=== PATIENT | female | born 1990 | race Caucasian/White ===

== ENCOUNTER → 2021-03-08 09:22 | Outpatient (BNVA) | payer OTHER, SELFPAY | PROVIDERS: PCP Family Medicine; Referring Provider Family Medicine; Visit Provider Nurse Practitioner | DX: K59.04 Chronic idiopathic constipation (principal); K21.9 Gastro-esophageal reflux disease without esophagitis; R63.4 Abnormal weight loss; R11.2 Nausea with vomiting, unspecified | CPT/HCPCS: 99202 ==

== ENCOUNTER 2021-03-08 10:55 | Outpatient (REF) | payer OTHER, SELFPAY ==
[2021-03-08 13:26] LABS: MANUAL DIFF FLAG NO
[2021-03-08 13:28] LABS: Basophils Percent Auto 0.3 % (0-2); Eosinophils Absolute Auto 0.1 X10*3/uL (0.0-0.4); Hematocrit 41.3 % (37.0-47.0); Hemoglobin 13.4 g/dl (12.0-16.0); Imm Gran Abs Auto 0.03 X10*3/uL (0.00-0.03); Imm Gran Pct Auto 0.3 % (0.0-0.4); Lymphocytes Absolute Auto 2.4 X10*3/uL (1.2-4.9); Lymphocytes Percent Auto 26.2 % (20-40); Mean Corpuscular HGB Conc 32.4 g/dl (31.0-35.0); Mean Corpuscular Hemoglobin 28.2 pg (27.0-33.0); Mean Corpuscular Volume 86.9 fL (80.0-98.0); Monocytes Absolute Auto 0.5 X10*3/uL (0.1-1.2); Neutrophils Absolute Auto 6.2 x10*3/uL (2.0-8.3); Neutrophils Percent Auto 67.2 % (45-73); Platelet Count 196 X10*3/uL (160-400); Red Blood Count 4.75 X10*6/uL (4.20-5.50); White Blood Count 9.2 X10*3/uL (4.8-10.8)
[2021-03-08 13:41] LABS: Alanine Aminotransferase 19 U/L (0-31); Albumin Level 4.4 g/dL (3.5-5.0); Alkaline Phosphatase 59 U/L (39-117); Anion Gap 13 (12-20); Aspartate Amino Transferase 19 U/L (5-31); Bilirubin Total 0.5 mg/dL (0.0-1.0); Blood Urea Nitrogen 13 mg/dL (9-16); Carbon Dioxide 23 mmol/L (22-29); Chloride 106 mmol/L (96-108); Cholesterol 166 mg/dL; Estimated Glomerular Filt Rate > 60; Glucose Fasting 94 mg/dL (60-99); HDL Cholesterol 50 mg/dL; LDL Cholesterol Calculated 105 mg/dl; Potassium 4.4 mmol/L (3.3-5.1); Sodium 138 mmol/L (135-145); Total Protein 7.4 g/dL (6.5-8.0); Triglycerides 57 mg/dL
[2021-03-08 13:50] LABS: Appearance Urine CLEAR; Color Urine YELLOW; Glucose Urine UA NEG (NEG); Leukocyte Esterase Urine 1+ (NEG); Nitrite Urine NEG (NEG); Urine Blood NEG (NEG); Urine Ketones NEG (NEG); Urine Protein NEG (NEG-TRACE)
[2021-03-08 14:03] LABS: TSH reflex Free T4 0.97 uIU/mL (0.32-4.0)
[2021-03-08 14:27] LABS: Bacteria Urine TRACE /LPF; RBC Urine 0-2 /HPF (0); Squamous Epithelial Cell Urine 2+ /LPF
[2021-03-12 10:52] LABS: Transglutaminase Ab IgG <1.0 U/mL; Transglutaminase IgA <1.0 U/mL
== END 2021-03-08 10:56 | disposition home or self-care (01) ==
LOC: HO.WFDLDS 10:55
PROVIDERS: Absent Provider Family Medicine; PCP Family Medicine; Visit Provider Nurse Practitioner
DX: Z00.00 Encounter for general adult medical examination without abnormal findings (principal); K59.04 Chronic idiopathic constipation; R63.4 Abnormal weight loss; K21.9 Gastro-esophageal reflux disease without esophagitis; R11.2 Nausea with vomiting, unspecified
CPT/HCPCS: 36415; 80053; 80061; 81001; 84443; 85025; 86364

== ENCOUNTER 2021-03-26 18:53 | Outpatient (REF) | payer OTHER, SELFPAY | END 2021-03-26 18:54 | disposition home or self-care (01) | LOC: HO.LNP 18:53 | PROVIDERS: Visit Provider Family Medicine | DX: Z20.822 Contact with and (suspected) exposure to COVID-19 (principal); J02.9 Acute pharyngitis, unspecified | CPT/HCPCS: U0003; U0005 ==

== ENCOUNTER 2021-07-16 11:49 | Outpatient (REF) | payer OTHER, SELFPAY ==
[2021-07-16 14:32] LABS: Leukocytes Stool Qualitative NEGATIVE (NEGATIVE)
[2021-07-16 15:27] LABS: CDiff Gene PCR NEGATIVE (Negative)
== END 2021-07-16 11:50 | disposition home or self-care (01) ==
LOC: HO.WFDLNP 11:49
PROVIDERS: Visit Provider Family Medicine
DX: R19.7 Diarrhea, unspecified (principal)
CPT/HCPCS: 87045; 87046; 87493; 89055

== ENCOUNTER → 2022-05-13 11:12 | Outpatient (BNVA) | payer OTHER, SELFPAY | PROVIDERS: PCP Family Medicine; Referring Provider Family Medicine; Visit Provider Nurse Practitioner | DX: K59.04 Chronic idiopathic constipation (principal); R11.2 Nausea with vomiting, unspecified; Z87.19 Personal history of other diseases of the digestive system | CPT/HCPCS: 99212 ==

== ENCOUNTER 2022-05-20 14:05 | Outpatient (REF) | payer OTHER, SELFPAY ==
[2022-05-20 14:28] LABS: MANUAL DIFF FLAG NO
[2022-05-20 14:42] LABS: Basophils Percent Auto 0.3 % (0-2); Eosinophils Absolute Auto 0.1 X10*3/uL (0.0-0.4); Eosinophils Percent Auto 0.9 % (0-4); Hematocrit 39.1 % (37.0-47.0); Hemoglobin 13.1 g/dl (12.0-16.0); Imm Gran Abs Auto 0.01 X10*3/uL (0.00-0.03); Imm Gran Pct Auto 0.1 % (0.0-0.4); Lymphocytes Absolute Auto 2.7 X10*3/uL (1.2-4.9); Lymphocytes Percent Auto 34.7 % (20-40); Mean Corpuscular HGB Conc 33.5 g/dl (31.0-35.0); Mean Corpuscular Hemoglobin 29.4 pg (27.0-33.0); Mean Corpuscular Volume 87.9 fL (80.0-98.0); Monocytes Absolute Auto 0.5 X10*3/uL (0.1-1.2); Monocytes Percent Auto 6.1 % (2-11); Neutrophils Absolute Auto 4.5 x10*3/uL (2.0-8.3); Neutrophils Percent Auto 57.9 % (45-73); Platelet Count 182 X10*3/uL (160-400); Red Blood Count 4.45 X10*6/uL (4.20-5.50); Red Cell Distribution Width 14.9 % (11.0-16.0); White Blood Count 7.7 X10*3/uL (4.8-10.8)
[2022-05-20 14:52] LABS: Appearance Urine Cloudy; Color Urine Yellow; Glucose Urine UA Negative (Negative); Leukocyte Esterase Urine Small (1+) (Negative); Nitrite Urine Negative (Negative); PH 5.5 (5.0-9.0); Specific Gravity - Urine 1.025 (1.005-1.025); UMIC TRIGGER UA YES; Urine Blood Negative (Negative); Urine Ketones Negative (Negative); Urine Protein Trace mg/dL (Neg-Trace)
[2022-05-20 15:18] LABS: Alanine Aminotransferase 9 U/L (0-31); Albumin Level 4.2 g/dL (3.5-5.0); Alkaline Phosphatase 44 U/L (39-117); Anion Gap 9 (12-20); Aspartate Amino Transferase 12 U/L (5-31); Bilirubin Total 0.7 mg/dL (0.0-1.0); Blood Urea Nitrogen 9 mg/dL (9-16); Calcium 8.6 mg/dL (8.4-10.2); Carbon Dioxide 27 mmol/L (22-29); Chloride 107 mmol/L (96-108); Cholesterol 132 mg/dL; Estimated Glomerular Filt Rate > 60; Glucose Fasting 77 mg/dL (60-99); HDL Cholesterol 38 mg/dL; LDL Cholesterol Calculated 82 mg/dl; Potassium 4.2 mmol/L (3.3-5.1); Sodium 139 mmol/L (135-145); Total Protein 6.6 g/dL (6.5-8.0); Triglycerides 63 mg/dL
[2022-05-20 15:29] LABS: Bacteria Urine 1+ (None Seen); Hyaline Casts Urine 0-2 /LPF (0-2); RBC Urine 0-2 /HPF (0-2); WBC Urine 0-5 /HPF (0-5)
[2022-05-20 16:04] LABS: Creatinine Urine 210.22 mg/dL; Microalbum/Creatinine Ratio Ur 7.6 ug/mg cr
== END 2022-05-20 14:06 | disposition home or self-care (01) ==
LOC: HO.LAB 14:05
PROVIDERS: PCP Family Medicine; Visit Provider Family Medicine
DX: Z00.00 Encounter for general adult medical examination without abnormal findings (principal); L72.3 Sebaceous cyst; I10 Essential (primary) hypertension
CPT/HCPCS: 36415; 80053; 80061; 81001; 82043; 84443; 85025

== ENCOUNTER 2022-06-10 11:11 | Outpatient (REF) | payer OTHER, SELFPAY ==
[2022-06-10 17:57] LABS: CT PCR NOT DETECTED (Not Detect.); NG PCR NOT DETECTED (Not Detect.)
[2022-06-11 08:53] LABS: BV Int Neg Control Negative (Negative); BV Int Pos Control Positive (Positive)
== END 2022-06-10 11:12 | disposition home or self-care (01) ==
LOC: HO.LAB 11:11
PROVIDERS: PCP Family Medicine; Visit Provider Advanced Practice Midwife
DX: R10.2 Pelvic and perineal pain (principal); N92.1 Excessive and frequent menstruation with irregular cycle
CPT/HCPCS: 0353U; 81025; 87480; 87510; 87660

== ENCOUNTER 2022-06-10 12:27 | Outpatient (REF) | payer OTHER, SELFPAY ==
[2022-06-16 22:09] LABS: HPV 16 RNA NOT DETECTED (NOT DETECTED); HPV mRNA E6/E7 rflx Detected (Not Detected)
== END 2022-06-10 12:28 | disposition home or self-care (01) ==
LOC: HO.LNP 12:27
PROVIDERS: Visit Provider Advanced Practice Midwife
DX: Z01.419 Encounter for gynecological examination (general) (routine) without abnormal findings (principal); Z11.51 Encounter for screening for human papillomavirus (HPV)
CPT/HCPCS: 87624; 87625; 88142

== ENCOUNTER → 2023-05-19 15:54 | Outpatient (AMB) | payer OTHER, SELFPAY ==
[2023-05-19 16:20] VITALS: BP 132/68; PULSE 75; O2SAT 98; BMI 26.4
--- NOTE | 2023-05-19 16:20 | MHC.PC.OV ---
Vital Signs 05/19/23 16:20 Height 5 ft 9 in Weight 179 lb BMI 26.4 BP 132/68 Blood Pressure Location Lt brachial Position Sitting Pulse 75 Pulse Source Pulse Oximeter Pulse Oximetry (%) 98 Oxygen Delivery Method Room Air Intake Visit Reasons: Physical exam Intake Note: Patient is here for her physical today. Patient still complaining about lack of sleep, and fatigue, also, her anxiety is high since she's been clean. She was looking to quit smoking with patches in high dose. Patient had 6 biopsies yesterday. Allergies aspirin Allergy (Intermediate, Verified 05/19/23 16:22) hives Sulfa (Sulfonamide Antibiotics) Allergy (Intermediate, Verified 05/19/23 16:22) hives sulfamethoxazole [From BACTRIM] Allergy (Intermediate, Verified 05/19/23 16:22) n & V trimethoprim [From BACTRIM] Allergy (Unknown, Verified 05/19/23 16:22) N&V Medication List - Last Reconciled 05/19/23 by Aram Wallace MD albuterol sulfate 90 mcg/actuation 2 puffs inhalation Q4-6H PRN apixaban (Eliquis) 5 mg PO BID 90 days linaclotide (Linzess) 145 mcg PO QAM methadone 69 mg PO Q4H polyethylene glycol 3350 (Miralax) 17 grams PO DAILY 1 month psyllium husk (with sugar) 3.4 gram (Metamucil (with sugar)) 1 tbsp PO DAILY 30 days Tobacco use date assessed: 05/19/23 Dental Screening Dental Screen Date: 05/19/23 Did you have a dental visit in the last 12 months?: Yes Did you have a dental problem in the last 6 months where you did not have access to dental care?: No Was dental information given to patient?: Patient has dentist HPI Physical exam HPI Details 33 y/o female presents for an extended exam with f/u labs and health maintenance. No recent labs to review. Pt reports fatigue/difficulty sleeping. She reports FHx of sleep apnea - her sister is on a CPAP machine. She also reports increased anxiety - had tested positive recently for HPV and pt states she f/u with [facility] for this but has been causing her increased anxiety. She is not on any medications for anxiety. She reports hx of bipolar. FORMERLY [facility], [facility]1983 Medical History Methadone use Prolonged menstrual cycle Renal abscess Kidney abscess Bronchitis Pulmonary embolism Renal mass, left Hypertension Surgical History No pertinent past surgical history Family History Mother Diabetes 1.5, managed as type 1 Heart disease Father DVT (deep venous thrombosis) Paternal Grandfather DVT (deep venous thrombosis) Sister DVT (deep venous thrombosis) Social History Housing: Apartment Alcohol intake: never Patient Tobacco Use Status: Current everyday Tobacco user Cigarette Packs Per Day: 1 Cigarettes Per Day: 10 Years Smoked: 15 e-Cigarette/Vaping Use: Never Used Second Hand Smoke Exposure: No Substance Use Type: Heroin and Prescription Drugs service: No Current occupational status: employed Current occupational exposures/hazards: No Sexual orientation: Straight/Heterosexual Gender identity: Female Cognitive needs: No Hearing needs: No Vision needs: No Questionnaire PHQ-9 Over the last 2 weeks, how often have you been bothered by any of the following problems? 1. Little interest or pleasure in doing things: more than half the days 2. Feeling down, depressed, or hopeless: not at all 3. Trouble falling or staying asleep, or sleeping too much: nearly every day 4. Feeling tired or having little energy: nearly every day 5. Poor appetite or overeating: nearly every day 6. Feeling bad about yourself - or that you are a failure or have let yourself or your family down: not at all 7. Trouble concentrating on things, such as reading the newspaper or watching television: more than half the days 8. Moving or speaking so slowly that other people could have noticed. Or the opposite - being so fidgety or restless that you have been moving around a lot more than usual: not at all 9. Thoughts that you would be better off or of hurting yourself in some way: not at all Total score: 13 Depression Screening Interpretation: Positive Depression Screening Done: Yes 92700 - PHQ-9 Billing: Yes Source: Developed by Drs. Mack Mariee, Rocio Alvarez, Taj Finch and colleagues, with an educational shakeel from [employer]. Thrive Questionnaire Date Thrive assessed: 04/01/22 ESTRELLA-7 AMB Questionnaire ESTRELLA-7 Date ESTRELLA - 7 assessed: 05/19/23 Feeling nervous, anxious, or on edge: 3 = Nearly every day Not being able to stop or control worryin = Nearly every day Worrying too much about different things: 3 = Nearly every day Trouble relaxin = Several days Being so restless that it is hard to sit still: 0 = Not at all Becoming easily annoyed or irritable: 1 = Several days Feeling afraid as if something awful might happen: 0 = Not at all Total ESTRELLA-7 score (0-4 normal; 5-9 mild; 10-14 moderate; 15-21 severe): 11 Source: Developed by Drs. Mack Mariee, Rocio Alvarez, Taj Finch and colleagues, with an educational shakeel from [employer]. ESTRELLA-7 Assessment Billing ESTRELLA-7 Assessment Tool: ESTRELLA-7 Assessment 24308 Review of Systems Const Reports fatigue, Denies headache(s) and Denies weakness Eyes Denies change in vision ENT Denies dizziness, Denies headache(s), Denies hearing loss, Denies nasal congestion, Denies sinus pain, Denies sinus pressure and Denies sore throat Card Denies chest pain, Denies lightheadedness, Denies dyspnea and Denies other (palpitations) Resp Denies cough, Denies dyspnea and Denies wheezing GI Denies abdominal pain, Denies melena, Denies hematochezia, Denies change in bowel habits, Denies dyspepsia and Denies nausea Denies hematuria and Denies dysuria Musc Denies abnormal gait, Denies myalgias, Denies arthralgias, Denies numbness and Denies tingling Skin/Breast Denies rash, Denies unusual bruising and Denies wounds Neuro Denies abnormal gait, Denies dizziness, Denies headache(s), Denies memory loss, Denies numbness, Denies Sensory deficit (Neuro), Denies tingling and Denies weakness Psych Reports anxiety and Denies memory loss Endo Reports fatigue Viral/Lymph Denies easy bleeding and Denies easy bruising Aller/Immun Denies wheezing Physical exam (Primary Care) Vital Signs: Last Vital Signs Pulse 75 05/19/23 16:20 BP 132/68 05/19/23 16:20 Pulse Ox 98 05/19/23 16:20 Oxygen Delivery Method Room Air 05/19/23 16:20 BMI result Body Mass Index 26.4 Tobacco/Smoking Status: Tobacco use Status Tobacco use date assessed 05/19/23 05/19/23 16:28 Patient Tobacco Use Status Current everyday Tobacco 05/19/23 16:28 e-Cigarette/Vaping Use Never Used 05/19/23 16:28 PHQ-9: PHQ-9 Score PHQ-9: Total score 13 05/19/23 16:34 Depression Screening Interpretation: Positive Thrive Assessment: Date of Thrive Assessment Date Thrive assessed 04/01/22 05/19/23 16:28 Const General: no acute distress, well developed, alert and awake Nutritional Appearance: well nourished Orientation/consciousness: patient oriented x3 HENMT Head: Yes normocephalic and Yes atraumatic Ears: hearing grossly normal bilaterally and TM's normal bilaterally General nose exam: Normal external nose present and Normal nares present Mouth: Normal oral and palatal mucosa present and moist mucous membranes Teeth and gingiva: dentition normal Throat: Yes posterior oropharynx normal Eyes General: appearance normal, both eyes and all related structures Pupils: Equal, round and reactive pupils present and Pupil accommodation reflex normal EOM: EOMs intact bilaterally Neck Neck: Yes normal visual inspection, Yes no lymphadenopathy and Yes trachea midline Thyroid: Thyroid normal Carotids: no bruits Lymphatic: no lymphadenopathy noted Chest Chest palpation & inspection: normal inspection of the chest Resp Other: W Effort & Inspection: normal respiratory effort Auscultation: clear to auscultation bilaterally Cardio Rate: regular rate Rhythm: regular rhythm Heart sounds: S1 normal heart sound present, S2 normal heart sound present, no gallops, no murmurs and no rubs Bruits: no abdominal aortic bruits and no carotid bruits GI Palpation (GI): No Abdominal aortic bruit present, Soft to palpation, nontender, No hepatosplenomegaly present and No Rebound tenderness present Auscultation: normal bowel sounds General: Yes no CVA tenderness Back/Spine/Pelvis Back: no CVA tenderness Cervical Spine: cervical ROM normal and No Cervical spine tenderness Thoracic/Lumbar Spine: thoraco-lumbar ROM normal, No pain with thoraco-lumbar ROM, No thoracic spinal tenderness and No lumbar spinal tenderness Skin Lesions: no lesions Rashes: no rashes Trauma: no lacerations or abrasions Wounds: no wounds Nails: normal Neuro General: patient oriented x3 Cranial nerves: Yes Equal, round and reactive pupils present Cognition (Neuro): normal cognition Gait exam (Neuro): Normal gait present Motor exam (neuro): 5/5 motor strength present throughout Sensory Exam: No Sensory deficit (Neuro) Deep tendon reflexes (DTR's): Right patellar reflex intensity grade: 2+ and Left patellar reflex intensity grade: 2+ Extrem General: Yes normal to inspection and No edema Psych Appearance: grossly normal Affect: normal affect Attitude: cooperative Thought process: Normal thought process present Assessment and Plan Assessment & Plan (1) Bipolar disorder: Code(s): F31.9 - Bipolar disorder, unspecified Plan: Untreated?though?patient?says?she?had?been?on?Seroquel?in?the?past Will?start?her?on?Abilify?2?mg?q.h.s. Follow-up?with?therapist May?need?referral?to?Psychiatry?if?unable?to?fine?medications?to?treat?her (2) Anxiety and depression: Code(s): F41.9 - Anxiety disorder, unspecified; F32.A - Depression, unspecified Plan: As?above Patient?denies?any?SI/HI Follow-up?with?therapist (3) Hypertension: Code(s): I10 - Essential (primary) hypertension Plan: BP?in?pre?diabetes?range. Will?follow (4) Smoker: Code(s): F17.200 - Nicotine dependence, unspecified, uncomplicated Plan: Start?nicotine?patches (5) Sleep apnea: Code(s): G47.30 - Sleep apnea, unspecified Plan: Referred?to?Sleep?Medicine (6) Fatigue: Code(s): R53.83 - Other fatigue Plan: Likely?multifactorial?but?as?above,?referred?to?Sleep?Medicine Also?likely?secondary?to?anxiety?due?to?her?bipolar?disorder?which?we?are?treating?with?Abilify?and?will?help?with?sleep?as?well (7) Family history of sleep apnea: Code(s): Z82.0 - Family history of epilepsy and other diseases of the nervous system Plan: As?above,?referred?to?Sleep?Medicine (8) Screening for cervical cancer: Code(s): Z12.4 - Encounter for screening for malignant neoplasm of cervix Plan: HPV?positive?and?recent?biopsies. Follow-up?with?carton wrapper?as?recommended (9) Cerumen impaction: Code(s): H61.20 - Impacted cerumen, unspecified ear Plan: Advised?Debrox?drops (10) Adult general medical exam: Code(s): Z00.00 - Encounter for general adult medical examination without abnormal findings Plan: 33-year-old?female?presents?for?an?extended?exam Orders: Referrals Sleep Medicine Referral G47.30 - Sleep apnea, unspecified Medications: New aripiprazole (Abilify) 2 mg PO BEDTIME 30 days 30 tabs 2RF nicotine (Nicoderm CQ) 1 patch transdermal DAILY 28 days 28 ea 1RF Coding Level of Care Code Est Pt Level 4 (43545) Diagnoses Bipolar disorder F31.9 Anxiety and depression F41.9; F32.A Hypertension I10 Smoker F17.200 Sleep apnea G47.30 Fatigue R53.83 Family history of sleep apnea Z82.0 Screening for cervical cancer Z12.4 Cerumen impaction H61.20 Adult general medical exam Z00.00 Additional Codes ESTRELLA-7 Assessment Billing - ESTRELLA-7 Assessment Tool: ESTRELLA-7 Assessment 67254 ([id number])
== END ==
PROVIDERS: PCP Family Medicine; Visit Provider Family Medicine
DX: Z00.00 Encounter for general adult medical examination without abnormal findings (principal); F31.9 Bipolar disorder, unspecified; I10 Essential (primary) hypertension; F41.9 Anxiety disorder, unspecified; F17.210 Nicotine dependence, cigarettes, uncomplicated; G47.30 Sleep apnea, unspecified; R53.83 Other fatigue; Z82.0 Family history of epilepsy and other diseases of the nervous system
CPT/HCPCS: 96127; 99213; 99395

== ENCOUNTER 2023-06-18 09:18 | Outpatient (REF) | payer OTHER, SELFPAY ==
[2023-06-18 11:54] LABS: Appearance Urine Clear; Color Urine Yellow; Glucose Urine UA Negative (Negative); Leukocyte Esterase Urine Trace (Negative); Nitrite Urine Negative (Negative); PH 7.5 (5.0-9.0); UMIC TRIGGER UA YES; Urine Blood Negative (Negative); Urine Ketones Negative (Negative); Urine Protein Negative (Neg-Trace)
[2023-06-18 12:01] LABS: Bacteria Urine 1+ (None Seen); Hyaline Casts Urine 0-2 /LPF (0-2); RBC Urine 0-2 /HPF (0-2); WBC Urine 0-5 /HPF (0-5)
[2023-06-18 12:29] LABS: Alanine Aminotransferase 15 U/L (0-31); Albumin Level 4.3 g/dL (3.5-5.0); Alkaline Phosphatase 47 U/L (39-117); Anion Gap 15 (12-20); Aspartate Amino Transferase 20 U/L (5-31); Bilirubin Total 0.5 mg/dL (0.0-1.0); Blood Urea Nitrogen 10 mg/dL (9-16); Calcium 9.3 mg/dL (8.4-10.2); Carbon Dioxide 20 mmol/L (22-29); Chloride 108 mmol/L (96-108); Cholesterol 157 mg/dL (<200); Estimated Glomerular Filt Rate > 60; Glucose Fasting 105 mg/dL (60-99); HDL Cholesterol 51 mg/dL (>40); LDL Cholesterol Calculated 95 mg/dL (<100); Potassium 4.4 mmol/L (3.3-5.1); Sodium 139 mmol/L (135-145); Total Protein 7.7 g/dL (6.5-8.0); Triglycerides 56 mg/dL (<150)
[2023-06-18 12:47] LABS: TSH reflex Free T4 1.28 uIU/mL (0.32-4.0); Vitamin D 25-OH Total 33.3 ng/mL (>30)
[2023-06-18 12:47] LABS: Creatinine Urine 51.32 mg/dL; Microalbum/Creatinine Ratio Ur 13.6 ug/mg cr (<30)
== END 2023-06-18 09:19 | disposition home or self-care (01) ==
LOC: HO.WFDLDS 09:18
PROVIDERS: Visit Provider Family Medicine
DX: Z00.00 Encounter for general adult medical examination without abnormal findings (principal); E55.9 Vitamin D deficiency, unspecified; I10 Essential (primary) hypertension
CPT/HCPCS: 36415; 80053; 80061; 81001; 82043; 82306; 82570; 84443; 85025

== ENCOUNTER 2023-07-14 14:58 | Outpatient (REF) | payer OTHER, SELFPAY ==
[2023-07-14 15:18] LABS: MANUAL DIFF FLAG NO
[2023-07-14 15:43] LABS: Basophils Percent Auto 0.5 % (0-2); Eosinophils Absolute Auto 0.1 X10*3/uL (0.0-0.4); Eosinophils Percent Auto 1.2 % (0-4); Hematocrit 40.4 % (37.0-47.0); Hemoglobin 13.4 g/dl (12.0-16.0); Imm Gran Abs Auto 0.02 X10*3/uL (0.00-0.03); Imm Gran Pct Auto 0.2 % (0.0-0.4); Lymphocytes Absolute Auto 2.9 X10*3/uL (1.2-4.9); Lymphocytes Percent Auto 34.2 % (20-40); Mean Corpuscular HGB Conc 33.2 g/dl (31.0-35.0); Mean Corpuscular Hemoglobin 29.6 pg (27.0-33.0); Mean Corpuscular Volume 89.2 fL (80.0-98.0); Mean Platelet Volume 10.9 fL (9.4-12.3); Monocytes Absolute Auto 0.4 X10*3/uL (0.1-1.2); Monocytes Percent Auto 5.1 % (2-11); Neutrophils Percent Auto 58.8 % (45-73); Platelet Count 204 X10*3/uL (160-400); Red Blood Count 4.53 X10*6/uL (4.20-5.50); Red Cell Distribution Width 13.5 % (11.0-16.0); White Blood Count 8.5 X10*3/uL (4.8-10.8)
[2023-07-14 15:52] LABS: Appearance Urine Cloudy; Color Urine Yellow; Glucose Urine UA Negative (Negative); Leukocyte Esterase Urine Trace (Negative); Nitrite Urine Negative (Negative); PH 5.5 (5.0-9.0); UMIC TRIGGER UA YES; Urine Blood Negative (Negative); Urine Ketones Negative (Negative); Urine Protein Negative (Neg-Trace)
[2023-07-14 15:57] LABS: Bacteria Urine 2+ (None Seen); Hyaline Casts Urine 0-2 /LPF (0-2); RBC Urine 0-2 /HPF (0-2); WBC Urine 0-5 /HPF (0-5)
== END 2023-07-14 14:59 | disposition home or self-care (01) ==
LOC: HO.LAB 14:58
PROVIDERS: PCP Family Medicine; Visit Provider Family Medicine
DX: Z00.00 Encounter for general adult medical examination without abnormal findings (principal)
CPT/HCPCS: 36415; 81001; 85025

== ENCOUNTER 2023-12-15 13:59 | Outpatient (AMB) | payer OTHER, SELFPAY ==
--- NOTE | 2023-12-15 14:18 | MHC.PC.OV ---
Vital Signs 12/15/23 14:20 Height 5 ft 9 in Weight 181 lb BMI 26.7 BP 112/72 Blood Pressure Location Lt brachial Position Sitting Intake Visit Reasons: ivana Wallace Administrator Pesticide Required: No Accompanied by: Self / Same As Patient Allergies aspirin Allergy (Intermediate, Verified 12/15/23 14:35) hives Sulfa (Sulfonamide Antibiotics) Allergy (Intermediate, Verified 12/15/23 14:35) hives sulfamethoxazole [From BACTRIM] Allergy (Intermediate, Verified 12/15/23 14:35) n & V trimethoprim [From BACTRIM] Allergy (Unknown, Verified 12/15/23 14:35) N&V Medication List - Last Reconciled 12/15/23 by Magdalena Quevedo MD albuterol sulfate 90 mcg/actuation 2 puffs inhalation Q4-6H PRN aripiprazole (Abilify) 2 mg PO BEDTIME 30 days enoxaparin (Lovenox) 40 mg subcut DAILY linaclotide (Linzess) 145 mcg PO QAM methadone 69 mg PO Q4H nicotine (Nicoderm CQ) 1 patch transdermal DAILY 28 days polyethylene glycol 3350 (Miralax) 17 grams PO DAILY 1 month psyllium husk (with sugar) 3.4 gram (Metamucil (with sugar)) 1 tbsp PO DAILY 30 days Tobacco use date assessed: 05/19/23 Dental Screening Dental Screen Date: 05/19/23 HPI HPI Comments History of Present Illness Details This is a 33 female with history of pulmonary embolism on chronic anticoagulation and constipation due to opiates that comes today complaining of mild major depression and anxiety. When she was younger she used to be on Wellbutrin and also try trazodone but psychiatrist change her medication. She reported no side effects in the past. She wants to quit smoking and I will start her on Wellbutrin also for that matter. Will also be referred to psych outpatient. On Lovenox at the moment for pulmonary embolism. Constipation stable with medications as needed. [facility] Medical History (Updated 12/15/23 @ 17:26 by Magdalena Quevedo MD) Methadone use Prolonged menstrual cycle Renal abscess Kidney abscess Bronchitis Pulmonary embolism Renal mass, left Hypertension Surgical History (Updated 12/15/23 @ 14:40 by Magdalena Quevedo MD) Status post total abdominal hysterectomy Family History Mother Diabetes 1.5, managed as type 1 Heart disease Father DVT (deep venous thrombosis) Paternal Grandfather DVT (deep venous thrombosis) Sister DVT (deep venous thrombosis) Social History Housing: Apartment Alcohol intake: never Patient Tobacco Use Status: Current everyday Tobacco user Cigarettes Per Day: 10 Years Smoked: 15 e-Cigarette/Vaping Use: Never Used Second Hand Smoke Exposure: No Substance Use Type: Heroin and Prescription Drugs service: No Current occupational status: employed Current occupational exposures/hazards: No Sexual orientation: Straight/Heterosexual Gender identity: Female Cognitive needs: No Hearing needs: No Vision needs: No Questionnaire Thrive Questionnaire Date Thrive assessed: 12/15/23 I am a: Patient What is your living situation today?: I have a steady place to live Within the past 12 months, did the food you bought not last and you didn't have the money to get more?: Never true Within the past 12 months, did you worry whether your food would run out before you got money to buy more?: Never true Do you have trouble paying for medicines?: No Do you have trouble getting transportation to medical appointments?: No Do you have trouble paying your heating and electricity bill?: No Do you have trouble taking care of your child, family member or friend?: No Do you have trouble with day-to-day activities such as bathing, preparing meals, shopping, managing finances, etc.?: No Are you currently unemployed and looking for a job?: No Are you interested in more education?: No Please select the resources that you would like help with: None Currently or been in a relationship where the following occur: No concerns reported THRIVE Score: 0 AUDIT C Alcohol Use Questionnaire (AUDIT-C) 1. How often do you have a drink containing alcohol?: Never Total Score: 0 ESTRELLA-7 AMB Questionnaire ESTRELLA-7 Date ESTRELLA - 7 assessed: 05/19/23 Feeling nervous, anxious, or on edge: 3 = Nearly every day Not being able to stop or control worryin = Nearly every day Worrying too much about different things: 3 = Nearly every day Trouble relaxin = Several days Being so restless that it is hard to sit still: 0 = Not at all Becoming easily annoyed or irritable: 1 = Several days Feeling afraid as if something awful might happen: 0 = Not at all Total ESTRELLA-7 score (0-4 normal; 5-9 mild; 10-14 moderate; 15-21 severe): 11 Source: Developed by Drs. Mack Mariee, Rocio Alvarez, Taj Finch and colleagues, with an educational shakeel from [employer]. ESTRELLA-7 Assessment Billing ESTRELLA-7 Assessment Tool: ESTRELLA-7 Assessment 86437 Review of Systems Const All systems reviewed & are unremarkable except as noted in HPI and below Card Denies chest pain at rest, Denies chest pain with activity, Denies edema, Denies irregular heart rhythm, Denies claudication, Denies dyspnea, Denies dyspnea on exertion, Denies orthopnea, Denies paroxysmal nocturnal dyspnea and Denies slow heart rate Resp Denies cough, Denies dyspnea and Denies dyspnea on exertion Psych Reports abnormal sleep pattern, Reports anxiety and Reports depression Physical exam (Primary Care) Vital Signs: Last Vital Signs BP 112/72 12/15/23 14:20 BMI result Body Mass Index 26.7 BMI Assessment/Plan discussion: High BMI High, discussed plan: lifestyle, weight reduction, dietary and physical activity Tobacco/Smoking Status: Tobacco use Status Tobacco use date assessed 05/19/23 12/15/23 14:31 Patient Tobacco Use Status Current everyday Tobacco 12/15/23 14:31 e-Cigarette/Vaping Use Never Used 12/15/23 14:31 Are you ready to quit: Yes Tobacco cessation counseling provided: Yes Items discussed: Nicotine replacement and QuitWorks Relapse Prevention: discussed the importance of a supportive environment, discussed extending NRT, discussed negative mood or depression after quitting, weight gain after smoking is common and discussed dietary, exercise and/or lifestyle changes Number of minutes spent counselin CPT code: 65647 - 4-10 Minutes Thrive Assessment: Date of Thrive Assessment Date Thrive assessed 12/15/23 12/15/23 14:31 Currently or been in a relationship where the following occur: No concerns reported Resp Effort & Inspection: normal respiratory effort Auscultation: clear to auscultation bilaterally Cardio Jugular venous distension: no JVD Rate: regular rate Rhythm: regular rhythm Heart sounds: S1 normal heart sound present and S2 normal heart sound present Extrem General: Yes full ROM Coding Level of Care Code Est Pt Level 4 (70831) Complex EM visit Add On G2211 Diagnoses Mild major depression F32.0 Insomnia G47.00 Pulmonary embolism I26.99 Constipation due to pain medication K59.03 Additional Codes ESTRELLA-7 Assessment Billing - ESTRELLA-7 Assessment Tool: ESTRELLA-7 Assessment 92586 ([id number]) Vital Signs *Quality* - CPT code: 47644 - 4-10 Minutes ([id number]) Time Spent (min) 23 Assessment & Plan Assessment & Plan (1) Mild major depression: Code(s): F32.0 - Major depressive disorder, single episode, mild Category: Medical Plan: Start Wellbutrin. (2) Insomnia: Code(s): G47.00 - Insomnia, unspecified Category: Medical Plan: Start trazodone. Referred to psych outpatient (3) Pulmonary embolism: Code(s): I26.99 - Other pulmonary embolism without acute cor pulmonale Category: Medical Plan: Continue chronic anticoagulation. (4) Constipation due to pain medication: Code(s): K59.03 - Drug induced constipation Category: Medical Plan: Use MiraLax as needed. Orders: Referrals Psychiatry Outpatient Consultation Service F31.9 - Bipolar disorder, unspecified, F32.0 - Major depressive disorder, single episode, mild Medications: New doxycycline hyclate 100 mg PO DAILY 90 caps 0RF 90 days bupropion HCl XL 150 mg PO QAM 30 tabs 3RF 30 days trazodone 50 mg PO BEDTIME PRN 90 tabs 0RF sleep 90 days G47.00 - Insomnia, unspecified Discontinued nicotine (Nicoderm CQ) Discontinued Reason: Patient Completed Course 1 patch transdermal DAILY 28 days 28 ea 1RF aripiprazole (Abilify) Discontinued Reason: Patient Completed Course 2 mg PO BEDTIME 30 days 30 tabs 2RF
[2023-12-15 14:20] VITALS: BP 112/72; BMI 26.7
== END 2023-12-15 14:56 | disposition home or self-care (01) ==
LOC: HO.HMCH 14:00
PROVIDERS: PCP Family Medicine; Visit Provider Internal Medicine
DX: F32.0 Major depressive disorder, single episode, mild (principal); G47.00 Insomnia, unspecified; I26.99 Other pulmonary embolism without acute cor pulmonale; K59.03 Drug induced constipation

== ENCOUNTER → 2023-12-15 13:59 | Outpatient (BNVA) | payer OTHER, SELFPAY | PROVIDERS: PCP Family Medicine; Visit Provider Internal Medicine | DX: F32.0 Major depressive disorder, single episode, mild (principal); G47.00 Insomnia, unspecified; I26.99 Other pulmonary embolism without acute cor pulmonale; K59.03 Drug induced constipation | CPT/HCPCS: 96127; 99212 ==

== ENCOUNTER 2024-01-26 15:20 | Outpatient (AMB) | payer OTHER, SELFPAY ==
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
== END 2024-01-26 17:36 | disposition home or self-care (01) ==
LOC: HO.HOP 15:20
PROVIDERS: PCP Family Medicine; Visit Provider Clinical Nurse Specialist Psychiatric/Mental Health
DX: F33.1 Major depressive disorder, recurrent, moderate (principal); F40.10 Social phobia, unspecified
CPT/HCPCS: 90792

== ENCOUNTER → 2024-01-26 15:20 | Outpatient (BNVA) | payer OTHER, SELFPAY | PROVIDERS: PCP Family Medicine; Visit Provider Clinical Nurse Specialist Psychiatric/Mental Health | DX: F33.1 Major depressive disorder, recurrent, moderate (principal); F40.10 Social phobia, unspecified | CPT/HCPCS: 90792 ==

== ENCOUNTER 2024-02-16 09:55 | Outpatient (REF) | payer OTHER, SELFPAY ==
[2024-02-16 11:01] LABS: MANUAL DIFF FLAG NO
[2024-02-16 11:36] LABS: Basophils Percent Auto 0.5 % (0-2); Eosinophils Absolute Auto 0.2 X10*3/uL (0.0-0.4); Eosinophils Percent Auto 2.4 % (0-4); Hematocrit 41.1 % (37.0-47.0); Hemoglobin 13.7 g/dl (12.0-16.0); Imm Gran Abs Auto 0.02 X10*3/uL (0.00-0.03); Imm Gran Pct Auto 0.3 % (0.0-0.4); Lymphocytes Absolute Auto 2.2 X10*3/uL (1.2-4.9); Lymphocytes Percent Auto 29.3 % (20-40); Mean Corpuscular HGB Conc 33.3 g/dl (31.0-35.0); Mean Corpuscular Hemoglobin 29.4 pg (27.0-33.0); Mean Corpuscular Volume 88.2 fL (80.0-98.0); Mean Platelet Volume 10.7 fL (9.4-12.3); Monocytes Absolute Auto 0.4 X10*3/uL (0.1-1.2); Neutrophils Absolute Auto 4.6 x10*3/uL (2.0-8.3); Neutrophils Percent Auto 62.5 % (45-73); Platelet Count 226 X10*3/uL (160-400); Red Blood Count 4.66 X10*6/uL (4.20-5.50); Red Cell Distribution Width 13.8 % (11.0-16.0); White Blood Count 7.4 X10*3/uL (4.8-10.8)
[2024-02-16 12:12] LABS: Alanine Aminotransferase 13 U/L (0-31); Albumin Level 4.3 g/dL (3.5-5.0); Alkaline Phosphatase 52 U/L (39-117); Anion Gap 10 (12-20); Aspartate Amino Transferase 19 U/L (5-31); Bilirubin Total 0.3 mg/dL (0.0-1.0); Blood Urea Nitrogen 11 mg/dL (9-16); Calcium 9.3 mg/dL (8.4-10.2); Carbon Dioxide 24 mmol/L (22-29); Chloride 111 mmol/L (96-108); Estimated Glomerular Filt Rate > 60; Glucose Random 104 mg/dL (60-115); Sodium 141 mmol/L (135-145); Total Protein 7.5 g/dL (6.5-8.0)
[2024-02-16 12:22] LABS: Lithium 0.18 mmol/L (0.60-1.20)
[2024-02-16 12:27] LABS: TSH reflex Free T4 1.49 uIU/mL (0.32-4.0)
== END 2024-02-16 09:56 | disposition home or self-care (01) ==
LOC: HO.WFDLDS 09:55
PROVIDERS: Visit Provider Clinical Nurse Specialist Psychiatric/Mental Health
DX: Z79.899 Other long term (current) drug therapy (principal)
CPT/HCPCS: 36415; 80053; 80178; 84443; 85025

== ENCOUNTER 2024-03-15 10:49 | Outpatient (AMB) | payer OTHER, SELFPAY ==
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
--- OUTSIDE RECORDS SUMMARY | 2024-03-15 11:43 | XMS_ITS | Clinical Summary ---
Author Organization [facility] Facility Address [address] [place] [address] Care Team Providers Care Skidder Driver Name Role Phone Aram Wallace MD Primary Care Provider Allergies Active Allergy Reactions Criticality Noted Date Comments Aspirin 06/24/2022 Sulfa Antibiotics 06/24/2022 Sulfamethoxazole 06/24/2022 Trimethoprim 06/24/2022 Medications linaCLOtide (Linzess) 145 MCG capsule Take 145 mcg by mouth 1 (one) time each day in the morning Active PSYLLIUM PO Take 0.52 g by mouth 1 (one) time each day Active Active Problems Problem Noted Date Diagnosed Date Cyst of kidney 06/24/2022 Family History Medical History Relation Comments Deep vein thrombosis Father Diabetes Mother Deep vein thrombosis Paternal Grandfather Relation Status Comments Father Mother Paternal Grandfather Social History Tobacco Use Types Packs/Day Years Used Date Smoking Tobacco: Every Day Cigarettes 1 15 Tobacco Cessation:Ready to Q uit: Not Asked; Counseling Given: Not Answered Alcohol Use Standard Drinks/Week Comments Never 0 (1 standard drink = 0.6 oz pur e alcohol) Comments Unknown Sex and Gender Information Value Date Recorded Sex Assigned at Not on file Legal Sex Female 9:28 AM EST Gender Identity Not on file Sexual Orientation Not on file Plan of Treatment Health Maintenance Due Date Last Done Comments Pneumococcal Vaccine: Pediat rics (0 to 5 Years) and At-Risk Patients (6 to 64 Years) (1 of 2 - PCV) 1994 Hepatitis B Vaccine (1 of 3 - 19+ 3-dose series) 04/16 Influenza Vaccine (#1) [address] [place] [address] [facility] [place] [address] [facility] [place] [address] Care Teams Skidder Driver Relationship Specialty Start Date End Date Aram Wallace MD [address] [phone] PCP - General Family Medicine 04/02/22
== END 2024-03-15 11:30 | disposition home or self-care (01) ==
LOC: HO.HOP 10:49
PROVIDERS: PCP Family Medicine; Visit Provider Clinical Nurse Specialist Psychiatric/Mental Health
DX: F33.1 Major depressive disorder, recurrent, moderate (principal); F90.2 Attention-deficit hyperactivity disorder, combined type; Z79.899 Other long term (current) drug therapy; F40.10 Social phobia, unspecified
CPT/HCPCS: 99214

== ENCOUNTER → 2024-03-15 10:49 | Outpatient (BNVA) | payer OTHER, SELFPAY | PROVIDERS: PCP Family Medicine; Visit Provider Clinical Nurse Specialist Psychiatric/Mental Health | DX: F33.1 Major depressive disorder, recurrent, moderate (principal); F90.2 Attention-deficit hyperactivity disorder, combined type; F40.10 Social phobia, unspecified; Z79.899 Other long term (current) drug therapy | CPT/HCPCS: 99212 ==

== ENCOUNTER 2024-03-15 11:32 | Outpatient (REF) | payer OTHER, SELFPAY ==
--- NOTE | ~2024-03-15 | XR_ITS ---
CLINICAL HISTORY: M54.9 - Dorsalgia, unspecified 1 view abdomen Comparison: None Findings: No pneumoperitoneum or pneumatosis. No abnormal calcifications. No acute fractures. IMPRESSION: Normal bowel gas pattern This document has been electronically signed by: Mary Boo MD on 03/16/2024 07:18:31
--- OUTSIDE RECORDS SUMMARY | 2024-03-15 12:34 | XMS_ITS | Clinical Summary ---
Author Organization [facility] Facility Address [address] [place] [address] Care Team Providers Care Truck Shop Mechanic Name Role Phone Aram Wallace MD Primary [...] Influenza Vaccine (#1) [address] [place] [address] [facility] MEDICAID [facility] MEDICAID Care Teams Truck Shop Mechanic Relationship Specialty Start Date End Date Aram Wallace MD [address] [phone] PCP - General Family Medicine 04/02/22
== END 2024-03-15 11:33 | disposition home or self-care (01) ==
LOC: HO.XRAY 11:32
PROVIDERS: PCP Internal Medicine; Visit Provider Internal Medicine
DX: M54.9 Dorsalgia, unspecified (principal)
CPT/HCPCS: 74018

== ENCOUNTER → 2024-03-15 11:36 | Outpatient (BNV) | payer OTHER, SELFPAY | PROVIDERS: PCP Internal Medicine; Visit Provider Radiology Diagnostic Radiology | DX: M54.9 Dorsalgia, unspecified (principal) | CPT/HCPCS: 74018 ==

== ENCOUNTER 2024-03-29 12:28 | Outpatient (REF) | payer OTHER, SELFPAY ==
--- OUTSIDE RECORDS SUMMARY | 2024-03-29 13:20 | XMS_ITS | Clinical Summary ---
Author Organization [facility] Facility Address [address] [place] [address] Care Team Providers Care Packaging Associate Name Role Phone Aram Wallace MD Primary Care Provider [phone] Allergies Active Allergy Reactions Criticality Noted Date [...] Influenza Vaccine (#1) [address] [place] [address] [facility] [place] [address] [facility] [place] [address] Care Teams Packaging Associate Relationship Specialty Start Date End Date Aram Wallace MD [address] [phone] PCP - General Family Medicine 04/02/22
[2024-03-29 13:39] LABS: Lithium 0.34 mmol/L (0.60-1.20)
[2024-03-29 13:57] LABS: Iron 93 mcg/dL (30-160); Percent Iron Saturation 35 % (15-50); Total Iron Binding Capacity 262 mcg/dL (228-428); Unsaturated Iron Binding 169 ug/dL
[2024-03-29 14:12] LABS: Ferritin 87 ng/mL (10-122); TSH reflex Free T4 1.87 uIU/mL (0.32-4.0)
[2024-03-29 14:25] LABS: Folate 11.5 ng/mL (> or = 4.0); Vitamin B12 507 pg/mL (200-900)
[2024-03-31 19:59] LABS: Zinc 78 mcg/dL (60-130)
[2024-04-03 14:13] LABS: Vitamin B1 16 nmol/L (8-30)
== END 2024-03-29 12:29 | disposition home or self-care (01) ==
LOC: HO.LAB 12:28
PROVIDERS: PCP Internal Medicine; Visit Provider Clinical Nurse Specialist Psychiatric/Mental Health
DX: F90.2 Attention-deficit hyperactivity disorder, combined type (principal); F33.1 Major depressive disorder, recurrent, moderate; Z79.899 Other long term (current) drug therapy
CPT/HCPCS: 36415; 80178; 82607; 82728; 82746; 83540; 84425; 84443; 84630

== ENCOUNTER 2024-04-26 11:17 | Outpatient (AMB) | payer OTHER, SELFPAY ==
[2024-04-26 11:28] VITALS: BP 110/80; PULSE 85; O2SAT 98; BMI 26.3
--- NOTE | 2024-04-26 11:28 | A.OFFVIS_ITS ---
Vital Signs 04/26/24 11:28 Height 5 ft 9 in Weight 178 lb BMI 26.3 BP 110/80 Blood Pressure Location Rt brachial Position Sitting Pulse 85 Pulse Source Pulse Oximeter Pulse Oximetry (%) 98 Oxygen Delivery Method Room Air Intake Visit Reasons: INP-Sleep apnea, unspecified Intake Note: Inpatient referral for sleep apnea. Patient referred by Aram Wallace. Accompanied by: Self / Same As Patient Allergies aspirin Allergy (Intermediate, Verified 04/26/24 11:28) hives Sulfa (Sulfonamide Antibiotics) Allergy (Intermediate, Verified 04/26/24 11:28) hives sulfamethoxazole [From BACTRIM] Allergy (Intermediate, Verified 04/26/24 11:28) n & V trimethoprim [From BACTRIM] Allergy (Unknown, Verified 04/26/24 11:) N&V HPI Comments Details: 34 year old female referred to us for sleep evaluation per PCP, Kirstin Jackman. She has difficulty going to sleep goes to bed at 7:30pm and wakes up at 6am with 1 bathroom break. 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 She has has athma since childhood, uses inhaler as needed with allergies and chronic ear infections R. ear. She wheezes, coughs and has dyspnea with exertion when climbing stairs with groceries and has L. knee pain with stairs. 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 She takes Linzess daily has been constipated for 2 weeks in the past and hospitalized, now no diarrhea on Linzess 145mcg. She is a smoker, 8 cigarettes a day, trying to stop. She has the nicotine patch and gum as needed. 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 She takes Box 600mg, Vyvanse 20mg ADHD, methadone 48mg PO daily and trying to taper. She takes Xarelto, and estrogen patch [place]. Headaches /Migraines: She has 2 per week, temporal and sinus behind the eyes to frontal, 5-6 in severity, increases to 7-8 ringing in the both ear, pressure, and throbbing. She has photophonia/ photophobia, and sensitivity to smells, onset of nausea, and vomiting with the more intense migraines. She takes Excedrin OTC. Her mood is good, she is in high spirits, with bursts of energy and a positive outlook. Her STM memory is poor, she forgets shopping list items, she has to write everything down, forgets her appt. difficulty recalling names, she does not drive. [facility] Medical History Methadone use Prolonged menstrual cycle Renal abscess Kidney abscess Bronchitis Pulmonary embolism Renal mass, left Hypertension Surgical History Status post total abdominal hysterectomy Family History Mother Diabetes 1.5, managed as type 1 Heart disease Father DVT (deep venous thrombosis) Paternal Grandfather DVT (deep venous thrombosis) Sister DVT (deep venous thrombosis) Social History Housing: Apartment Alcohol intake: never Patient Tobacco Use Status: Current everyday Tobacco user Cigarettes Per Day: 10 Years Smoked: 15 e-Cigarette/Vaping Use: Never Used Second Hand Smoke Exposure: No Substance Use Type: Heroin and Prescription Drugs service: No Current occupational status: employed Current occupational exposures/hazards: No Sexual orientation: Straight/Heterosexual Gender identity: Female Cognitive needs: No Hearing needs: No Vision needs: No Physical Exam Vital Signs: Last Vital Signs Pulse 85 04/26/24 11:28 BP 110/80 04/26/24 11:28 Pulse Ox 98 04/26/24 11:28 Oxygen Delivery Method Room Air 04/26/24 11:28 BMI result Body Mass Index 26.3 Const General: cooperative, comfortable and no acute distress Nutritional Appearance: average body habitus Orientation/consciousness: patient oriented x3 HEENT Face and sinus: Yes normal facial exam and Yes face symmetric Teeth and gingiva: other ([place] score of 2) Eyes Pupils: Equal, round and reactive pupils present Neck Neck: Yes full ROM and Yes supple Resp Effort & Inspection: normal respiratory effort, able to speak in complete sentences and Actively coughing Neuro General: patient oriented x3 and moves all extremities Cranial nerves: Yes Facial sensation intact/muscles of mastication intact, Yes Equal, round and reactive pupils present, Yes Normal accommodation reflex present, Yes Bilaterally intact EOM present, Yes Nystagmus not present, Yes Normal facial strength present, Yes Midline tongue present, Yes Ability to bila terally rotate head present and Yes Ability to bilaterally elevate shoulders present Cognition (Neuro): normal cognition Gait exam (Neuro): Other gait observations present (leans to r. side due to L. knee pain.) Motor exam (neuro): 5/5 motor strength present throughout and Normal motor muscle tone present throughout Deep tendon reflexes (DTR's): Right triceps reflex intensity grade: 2+, Left triceps reflex intensity grade: 2+, Rt Biceps (C5, C6): 2+, Left biceps reflex intensity grade: 2+, Right brachioradialis reflex intensity grade: 2+, Left brachioradialis reflex intensity grade: 2+, Right patellar reflex intensity grade: 2+ and Left patellar reflex intensity grade: 2+ Results Reviewed Results Reviewed: Labs are normal LFTs on - Feb 2024 Vitamin D deficiency in past. Assessment & Plan Assessment & Plan (1) Migraines: Code(s): G43.909 - Migraine, unspecified, not intractable, without status migrainosus Category: Medical Qualifiers: Migraine type: periodic headache syndrome Intractability: intractable Qualified Code(s): G43.C1 - Periodic headache syndromes in child or adult, intractable (2) Loud snoring: Code(s): R06.83 - Snoring Category: Medical (3) Fatigue due to sleep pattern disturbance: Code(s): R53.83 - Other fatigue; G47.9 - Sleep disorder, unspecified Category: Medical Plan Sleep difficulties HST and Melatonin 3-5mg PO as needed. Migraines Headaches Sumatriptan 50mg PO take one tablet at onset of headache, may repeat 2 hours later if headache does not abort. May apply peppermint or Eucalyptus oil on temples as needed for migraines and use a Migraine Cap. Fatigue Labs CBC/CMP / Vitamin D/ B12/ B6/ TSH/ Ferritin L. knee pain with climbing stairs, L. knee patellar protrusion. Labs Vitamin D - History of deficiency. Orders: Orders XR knee LT 3V Today M25.562 - Pain in left knee RT home sleep study Today G47.19 - Other hypersomnia Medications: New sumatriptan succinate take 1 tab at onset of headache; if no relief may repeat 1 tab after at least 2 hrs; max = 4 tabs/24 hr PO 30 days 12 tabs 0RF migraine headaches MDD 100mg PO daily G43.909 - Migraine, unspecified, not intractable, without status migrainosus Patient Instructions: Patient Education: Sleep Hygiene setting a consistent sleep / wake time will help to regulate sleep cycle. Sleep in a dark, cool room, temperatures should be 68 degrees or below. No devices in bed may read a book or magazine and diffuse essential oils, do gentle yoga or play calming music. Smoking Cessation when ready begin the counseling, [employer], patch and gum is available. Xray for Left knee pain and protrusion of the patellar, knee buckling. Migraines, Sumatriptan 50mg with the onset of Migraine headache, may repeat in 2-4 hours if the headache dose not abort. May use migraine cap and peppermint or eucalyptus oil on temples as needed. Drink 50% of weight in water usually 4-6 bottles of 160z a day at the least, for detox. F/u in 3 months after the sleep study. Coding Level of Care Code New Pt Level 4 (41361) Complex EM visit Add On G2211 Diagnoses Intractable periodic headache syndrome G43.C1 Migraine type: periodic headache syndrome Intractability: intractable Loud snoring R06.83 Fatigue due to sleep pattern disturbance R53.83; G47.9 Time Spent (min) 40 Comment Evaluation Sleep Questionnaire Difficulty falling asleep: Yes Difficulty staying asleep?: Yes Number of arousals: 4x Snoring: Yes Witnessed apneas: Yes Gasping arousals: Yes Nocturia: No GERD: Yes Vivid dreams: No Acting out dreams: No Abnormal behavior in sleep: No Abnormal movements in sleep: No Morning headaches: Yes Excessive daytime sleepiness: Yes Daytime naps: Yes Restless legs: Yes Hallucinations: No Sleep paralysis: No Drop attacks: No Sleep Study: No CPAP: No
--- OUTSIDE RECORDS SUMMARY | 2024-04-26 13:43 | XMS_ITS | Clinical Summary ---
Author Organization [facility] Facility Address [address] [place] [address] Care Team Providers Care Residential Mortgage Underwriter Name Role Phone Aram Wallace MD Primary [...] Influenza Vaccine (#1) [address] [place] [address] [facility] MED[facility] Care Teams Residential Mortgage Underwriter Relationship Specialty Start Date End Date Aram Wallace MD [address] [phone] PCP - General Family Medicine 04/02/22
== END 2024-04-26 12:22 | disposition home or self-care (01) ==
LOC: HO.HSMS 11:17
PROVIDERS: Absent Provider Physician Assistant Medical; PCP Family Medicine; Visit Provider Physician Assistant Medical
DX: G43.C1 Periodic headache syndromes in child or adult, intractable (principal); R06.83 Snoring; R53.83 Other fatigue; G47.9 Sleep disorder, unspecified
CPT/HCPCS: 99204; G2211

== ENCOUNTER → 2024-04-26 11:17 | Outpatient (BNVA) | payer OTHER, SELFPAY | PROVIDERS: Absent Provider Physician Assistant Medical; PCP Family Medicine; Visit Provider Physician Assistant Medical | DX: G43.C1 Periodic headache syndromes in child or adult, intractable (principal); G43.909 Migraine, unspecified, not intractable, without status migrainosus; G47.9 Sleep disorder, unspecified; G47.19 Other hypersomnia; R06.83 Snoring; R53.83 Other fatigue; M25.562 Pain in left knee | CPT/HCPCS: 99202 ==

== ENCOUNTER 2024-05-10 13:17 | Outpatient (AMB) | payer OTHER, SELFPAY ==
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
--- OUTSIDE RECORDS SUMMARY | 2024-05-10 15:35 | XMS_ITS | Clinical Summary ---
Author Organization [facility] Facility Address [address] [place] [address] Care Team Providers Care Line Cleaner Name Role Phone Aram Wallace MD Primary [...] Influenza Vaccine (#1) [address] [place] [address] [facility] MEDICAID [facility] MEDICA[facility] Care Teams Line Cleaner Relationship Specialty Start Date End Date Aram Wallace MD [address] [phone] PCP - General Family Medicine 04/02/22
== END 2024-05-10 14:10 | disposition home or self-care (01) ==
LOC: HO.HOP 13:17
PROVIDERS: PCP Internal Medicine; Visit Provider Clinical Nurse Specialist Psychiatric/Mental Health
DX: F90.2 Attention-deficit hyperactivity disorder, combined type (principal); F40.10 Social phobia, unspecified; F33.1 Major depressive disorder, recurrent, moderate
CPT/HCPCS: 99214

== ENCOUNTER → 2024-05-10 13:17 | Outpatient (BNVA) | payer OTHER, SELFPAY | PROVIDERS: PCP Internal Medicine; Visit Provider Clinical Nurse Specialist Psychiatric/Mental Health | DX: F90.2 Attention-deficit hyperactivity disorder, combined type (principal); F40.10 Social phobia, unspecified; F33.1 Major depressive disorder, recurrent, moderate | CPT/HCPCS: 99212 ==

== ENCOUNTER 2024-05-17 13:42 | Outpatient (REF) | payer OTHER, SELFPAY ==
--- NOTE | ~2024-05-17 | XR_ITS ---
CLINICAL HISTORY: M25.562 - Pain in left knee 3 view left knee Comparison: None Findings: No fractures or dislocations. No significant arthritic change or erosions. No joint effusion. On the lateral view, there is a radiopaque linear foreign body in the dorsal soft tissues of the proximal calf that measures 1.5 cm in length. There are well corticated irregularities in fragmentations in the tibial tubercle. There is mild soft tissue swelling. IMPRESSION: 1. No acute fracture, dislocation or significant joint effusion. 2. No significant arthritic changes. 3. Suspicion for a linear foreign body in the posterior soft tissues of the proximal calf. 4. 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 This document has been electronically signed by: Sonal Avelar DO on 05/18/2024 16:03:55
--- NOTE | 2024-05-17 13:46 | ECG_ITS ---
Test Reason : Z79.899 Blood Pressure : */* mmHG Vent. Rate : 63 BPM Atrial Rate : 63 BPM P-R Int : 164 ms QRS Dur : 86 ms QT Int : 416 ms P-R-T Axes : 37 60 50 degrees QTcB Int : 425 ms Normal sinus rhythm Normal ECG No previous ECGs available Referred By: Dahlia Osorio Electronically Signed By: Rock Summers
--- OUTSIDE RECORDS SUMMARY | 2024-05-17 16:41 | XMS_ITS | Clinical Summary ---
Author Organization [facility] Facility Address [address] [place] [address] Care Team Providers Care Milk Truck Driver Name Role Phone Aram Wallace MD [...] - 19+ 3-dose series) 04/16 Influenza Vaccine (Season Ended) [address] [place] [id number] [facility] MEDICAID [facility] MEDICAID Care Teams Milk Truck Driver Relationship Specialty Start Date End Date Aram Wallace MD [address] [phone] PCP - General Family Medicine 04/02/22
== END 2024-05-17 13:43 | disposition home or self-care (01) ==
LOC: HO.XRAY 13:42
PROVIDERS: Absent Provider Clinical Nurse Specialist Psychiatric/Mental Health; Visit Provider Physician Assistant Medical
DX: M25.562 Pain in left knee (principal); Z79.899 Other long term (current) drug therapy
CPT/HCPCS: 73562; 93005

== ENCOUNTER → 2024-05-17 13:46 | Outpatient (BNV) | payer OTHER, SELFPAY | PROVIDERS: Absent Provider Clinical Nurse Specialist Psychiatric/Mental Health; Visit Provider Internal Medicine Cardiovascular Disease | DX: Z79.899 Other long term (current) drug therapy (principal) | CPT/HCPCS: 93010 ==

== ENCOUNTER → 2024-05-17 13:56 | Outpatient (BNV) | payer OTHER, SELFPAY | PROVIDERS: Absent Provider Clinical Nurse Specialist Psychiatric/Mental Health; Visit Provider Radiology Diagnostic Radiology | DX: M25.562 Pain in left knee (principal) | CPT/HCPCS: 73562 ==

== ENCOUNTER 2024-06-21 12:47 | Outpatient (AMB) | payer OTHER, SELFPAY ==
--- NOTE | 2024-06-21 12:50 | MHC.PC.OV ---
Vital Signs 06/21/24 12:51 Height 5 ft 9 in Weight 178 lb BMI 26.3 BP 130/78 Blood Pressure Location Lt brachial Position Sitting Intake Visit Reasons: Annual Exam Intake Note: Patient here for a physical exam Rn New Graduate Required: No Accompanied by: Self / Same As Patient Allergies aspirin Allergy (Intermediate, Verified 06/21/24 13:07) hives Sulfa (Sulfonamide Antibiotics) Allergy (Intermediate, Verified 06/21/24 13:07) hives sulfamethoxazole [From BACTRIM] Allergy (Intermediate, Verified 06/21/24 13:07) n & V trimethoprim [From BACTRIM] Allergy (Unknown, Verified 06/21/24 13:07) N&V Medication List - Last Reconciled 06/21/24 by Magdalena Quevedo MD albuterol sulfate 90 mcg/actuation 2 puffs inhalation Q4-6H PRN cholecalciferol (vitamin D3) 25 mcg PO DAILY MDD 1000 unit capsule daily linaclotide (Linzess) 145 mcg PO QAM lisdexamfetamine (Vyvanse) 40 mg PO QAM lithium carbonate ER 600 mg (2 x 300 mg) PO BEDTIME methadone 41 mg PO Q4H omeprazole 20 mg PO DAILY 90 days quetiapine 200 mg (2 x 100 mg) PO BEDTIME sumatriptan succinate take 1 tab at onset of headache; if no relief may repeat 1 tab after at least 2 hrs; max = 4 tabs/24 hr PO 30 days MDD 200mg po Tobacco use date assessed: 06/21/24 Dental Screening Dental Screen Date: 06/21/24 Did you have a dental visit in the last 12 months?: Yes Did you have a dental problem in the last 6 months where you did not have access to dental care?: No Was dental information given to patient?: Patient has dentist HPI HPI Comments History of Present Illness Details The patient is a 34-year-old female presenting for her physical exam with chronic and interrelated health issues. Of note, she previously underwent a hysterectomy due to cervical cancer and attends regular oncological evaluations every six months. She has a history of DVT and pulmonary embolism with ongoing anticoagulation therapy. Methadone is currently being tapered from an initial 170 mg to 41 mg as she aspires to discontinue due to previous substance misuse, achieving prolonged sobriety. Chronic bilateral knee pain is reported with suspicion of osteoarthritis. Imaging discrepancies warrant orthopedic evaluation. Symptomatic carpal tunnel syndrome is suspected due to nocturnal hand numbness, necessitating a nerve conduction study. Asthma management includes inhaler use, but a recent expiration necessitates prescribing a refill. Her mental health condition, bipolar disorder, is controlled on lithium, and mood stabilization issues with Vyvanse led to dose adjustments. Chronic migraines, GERD, and historical renal masses from a decade ago also comprise the list of managed conditions. She experiences dermatological issues with facial cysts but faces extended waiting periods for specialist evaluations. Lifestyle discussions include notable tobacco usage as a risk factor, with exploration of Chantix for cessation efforts. - Up-to-date vaccinations include Tetanus booster in 2022. - Pap smear performed in 2022, as part of ongoing surveillance post-cervical cancer treatment. - Regular follow-ups with hematology and oncology due to history of DVT and cervical cancer. - Methadone tapering and ongoing substance misuse recovery, nearly five years sober. - Discussion about Chantix for smoking cessation. - Recommended ultrasound to monitor historical renal mass and hematoma. - Recommended dermatology consultation for chronic cysts, awaiting availability. [facility], LAT[facility] Medical History Methadone use Prolonged menstrual cycle Renal abscess Kidney abscess Bronchitis Pulmonary embolism Renal mass, left Hypertension Surgical History Status post total abdominal hysterectomy Family History Mother Diabetes 1.5, managed as type 1 Heart disease Father DVT (deep venous thrombosis) Paternal Grandfather DVT (deep venous thrombosis) Sister DVT (deep venous thrombosis) Social History Housing: Apartment Alcohol intake: never Patient Tobacco Use Status: Current everyday Tobacco user Cigarettes Per Day: 10 Years Smoked: 15 e-Cigarette/Vaping Use: Never Used Second Hand Smoke Exposure: No Substance Use Type: Heroin and Prescription Drugs service: No Current occupational status: employed Current occupational exposures/hazards: No Sexual orientation: Straight/Heterosexual Gender identity: Female Cognitive needs: No Hearing needs: No Vision needs: No Questionnaire PHQ-9 Over the last 2 weeks, how often have you been bothered by any of the following problems? 1. Little interest or pleasure in doing things: several days 2. Feeling down, depressed, or hopeless: several days 3. Trouble falling or staying asleep, or sleeping too much: more than half the days 4. Feeling tired or having little energy: more than half the days 5. Poor appetite or overeating: more than half the days 6. Feeling bad about yourself - or that you are a failure or have let yourself or your family down: not at all 7. Trouble concentrating on things, such as reading the newspaper or watching television: several days 8. Moving or speaking so slowly that other people could have noticed. Or the opposite - being so fidgety or restless that you have been moving around a lot more than usual: not at all 9. Thoughts that you would be better off or of hurting yourself in some way: not at all Total score: 9 Depression Screening Interpretation: Positive Depression Screening Follow-up: Existing condition, Community Mental Health Worker F/U and Follow-up Visit Requested Depression Screening Done: Yes 87569 - PHQ-9 Billing: Yes Source: Developed by Drs. Mack Mariee, Rocio Alvarez, Taj Finch and colleagues, with an educational shakeel from [employer]. Thrive Questionnaire Date Thrive assessed: 06/14/24 I am a: Patient What is your living situation today?: I have a steady place to live Within the past 12 months, did the food you bought not last and you didn't have the money to get more?: Sometimes True Within the past 12 months, did you worry whether your food would run out before you got money to buy more?: Sometimes True Do you have trouble paying for medicines?: I choose not to answer this question Do you have trouble getting transportation to medical appointments?: No Do you have trouble paying your heating and electricity bill?: I choose not to answer this question Do you have trouble taking care of your child, family member or friend?: No Do you have trouble with day-to-day activities such as bathing, preparing meals, shopping, managing finances, etc.?: No Are you currently unemployed and looking for a job?: No Are you interested in more education?: Yes Please select the resources that you would like help with: Housing/M[facility], Utilities and Education Currently or been in a relationship where the following occur: I choose not to answer THRIVE Score: 2 AUDIT C Alcohol Use Questionnaire (AUDIT-C) 1. How often do you have a drink containing alcohol?: Never Total Score: 0 Score Reviewed/Action Taken: No ESTRELLA-7 AMB Questionnaire ESTRELLA-7 Date ESTRELLA - 7 assessed: 06/21/24 Feeling nervous, anxious, or on edge: 1 = Several days Not being able to stop or control worryin = Several days Worrying too much about different things: 1 = Several days Trouble relaxin = Several days Being so restless that it is hard to sit still: 1 = Several days Becoming easily annoyed or irritable: 1 = Several days Feeling afraid as if something awful might happen: 1 = Several days Total ESTRELLA-7 score (0-4 normal; 5-9 mild; 10-14 moderate; 15-21 severe): 7 Source: Developed by Drs. Mack Mariee, Rocio Alvarez, Taj Finch and colleagues, with an educational shakeel from [employer]. ESTRELLA-7 Assessment Billing ESTRELLA-7 Assessment Tool: ESTRELLA-7 Assessment 82756 Review of Systems Const All systems reviewed & are unremarkable except as noted in HPI and below Card Denies chest pain at rest, Denies chest pain with activity, Denies edema, Denies irregular heart rhythm, Denies claudication, Denies dyspnea, Denies dyspnea on exertion, Denies orthopnea, Denies paroxysmal nocturnal dyspnea and Denies slow heart rate Resp Denies cough, Denies dyspnea and Denies dyspnea on exertion GI Denies abdominal pain, Denies change in bowel habits, Denies excessive flatus, Denies nausea and Denies vomiting Denies urinary incontinence, Denies urinary hesitancy and Denies urinary urgency Musc Denies abnormal gait, Denies atrophy, Denies deformity and Denies limited range of motion Skin/Breast Denies bleeding lesions, Denies changing lesions and Denies rash Neuro Denies abnormal gait, Denies behavioral changes and Denies lack of coordination Psych Denies behavioral changes Physical exam (Primary Care) Vital Signs: Last Vital Signs BP 130/78 06/21/24 12:51 BMI result Body Mass Index 26.3 Tobacco/Smoking Status: Tobacco use Status Tobacco use date assessed 06/21/24 06/21/24 12:57 Patient Tobacco Use Status Current everyday Tobacco 06/21/24 12:57 e-Cigarette/Vaping Use Never Used 06/21/24 12:57 Are you ready to quit: Yes Tobacco cessation counseling provided: Yes Items discussed: Nicotine replacement and QuitWorks Relapse Prevention: discussed the importance of a supportive environment, discussed extending NRT, discussed negative mood or depression after quitting, weight gain after smoking is common and discussed dietary, exercise and/or lifestyle changes Number of minutes spent counselin CPT code: 27424 - 4-10 Minutes PHQ-9: PHQ-9 Score PHQ-9: Total score 9 06/21/24 12:57 Depression Screening Interpretation: Positive Depression Screening Follow-up: Existing condition, Community Mental Health Worker F/U and Follow-up Visit Requested Thrive Assessment: Date of Thrive Assessment Date Thrive assessed 06/14/24 06/21/24 12:57 Currently or been in a relationship where the following occur: I choose not to answer HENMT Head: Yes normal to inspection, Yes normocephalic and Yes atraumatic Ears: external ears normal Eyes General: appearance normal, both eyes and all related structures Eyelids: Yes eyelids normal Conjunctivae: conjunctivae normal Neck Neck: Yes normal visual inspection and Yes supple Resp Effort & Inspection: normal respiratory effort Auscultation: clear to auscultation bilaterally Cardio Jugular venous distension: no JVD Rate: regular rate Rhythm: regular rhythm Heart sounds: S1 normal heart sound present and S2 normal heart sound present GI Inspection: Yes normal to inspection Palpation (GI): Soft to palpation and nontender Auscultation: normal bowel sounds Skin General skin exam: no rashes or lesions noted Neuro General: no focal motor deficits Extrem General: Yes full ROM Psych Appearance: grossly normal Coding Level of Care Code Est Pt Level 4 (57973) Est Pt Prev Care 18-39y(77246) Diagnoses Physical exam Z00.00 Mild persistent asthma J45.30 Foot callus L84 Right knee pain M25.561 Left hand pain M79.642 Hand paresthesia R20.2 Polyarthralgia M25.50 Pulmonary embolism I26.99 Renal mass, left N28.89 [place]-Schlatter's disease M92.529 Major depressive disorder, recurrent, moderate F33.1 Bipolar disorder F31.9 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 Additional Codes PHQ-9 - 16761 - PHQ-9 Billing: Yes ([id number]) ESTRELLA-7 Assessment Billing - ESTRELLA-7 Assessment Tool: ESTRELLA-7 Assessment 40639 ([id number]) Vital Signs *Quality* - CPT code: 37960 - 4-10 Minutes ([id number]) Time Spent (min) 52 Assessment & Plan Assessment & Plan (1) Physical exam: Code(s): Z00.00 - Encounter for general adult medical examination without abnormal findings Category: Medical (2) Mild persistent asthma: Code(s): J45.30 - Mild persistent asthma, uncomplicated Category: Medical (3) Foot callus: Code(s): L84 - Corns and callosities Category: Medical (4) Right knee pain: Code(s): M25.561 - Pain in right knee Category: Medical (5) Left hand pain: Code(s): M79.642 - Pain in left hand Category: Medical (6) Hand paresthesia: Code(s): R20.2 - Paresthesia of skin Category: Medical (7) Polyarthralgia: Code(s): M25.50 - Pain in unspecified joint Category: Medical (8) Pulmonary embolism: Code(s): I26.99 - Other pulmonary embolism without acute cor pulmonale Category: Medical (9) Renal mass, left: Code(s): N28.89 - Other specified disorders of kidney and ureter Category: Medical (10) [place]-Schlatter's disease: Code(s): 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, unspecified leg Category: Medical (11) Major depressive disorder, recurrent, moderate: Code(s): F33.1 - Major depressive disorder, recurrent, moderate Category: Medical (12) Pulmonary embolism: Code(s): I26.99 - Other pulmonary embolism without acute cor pulmonale Category: Medical (13) Bipolar disorder: Code(s): F31.9 - Bipolar disorder, unspecified Category: Medical (14) 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 Chantix will be prescribed as a smoking cessation aid, accompanied by detailed advice on potential mood changes. A renewed prescription for her asthma inhaler is warranted. A gradual reduction in methadone dosage will continue under careful supervision to support her recovery from substance misuse. Examination and evaluation by orthopedics and rheumatology will be arranged concurrent with x-ray and nerve conduction assessments to address the patient's joint and neurological symptoms, suspected of being due to osteoarthritis and carpal tunnel syndrome, respectively. Continuous hematology engagement is essential due to her established DVT history. Although her dermatology appointment is not immediate, it remains crucial for continued care. Omeprazole continues to be prescribed for GERD management. Patient was informed and verbally consented to the use of an ambient scribe for clinic note documentation during this visit. I discussed with the patient the likely diagnosis for each of her reported symptoms and conditions. The potential introduction of Chantix for smoking cessation was reviewed, discussing its benefits and possible side effects, notably mood alterations, with recommendations to monitor and cease use if adverse effects occur. I advised on the importance of refilling her asthma inhaler. Continued methadone taper was emphasized in light of her substance misuse recovery. The need for orthopedic, lamp inspector, and hematologic follow-ups was articulated considering her conditions, alongside the necessity of diagnostic imaging and studying her knee and hand pain. Dermatologic follow-up was discussed, despite the waiting period, to address cystic concerns. I reiterated the necessity of fasting before her upcoming blood work and reminded of her other scheduled appointments. Orders: Orders NE nerve conduction velocity Today R20.2 - Paresthesia of skin Comprehensive Java. Panel Fast Today Z00.00 - Encounter for general adult medical examination without abnormal findings Vitamin B12 and Folate Today E53.8 - Deficiency of other specified B group vitamins Complete Blood Count Auto Diff Today D64.9 - Anemia, unspecified IRON PROFILE Today D64.9 - Anemia, unspecified US renal BI Today N28.89 - Other specified disorders of kidney and ureter XR knee RT 2V Today M25.561 - Pain in right knee XR hand LT 2V Today M79.642 - Pain in left hand NE electromyogram (EMG) Today R20.2 - Paresthesia of skin Vitamin D 25-OH Total Today E55.9 - Vitamin D deficiency, unspecified Lipid Panel Today E78.5 - Hyperlipidemia, unspecified, Z00.00 - Encounter for general adult medical examination without abnormal findings Referrals Orthopedics Referral 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, unspecified leg Podiatry Referral L84 - Corns and callosities Hematology & Oncology Referral I26.99 - Other pulmonary embolism without acute cor pulmonale Rheumatology Referral M25.50 - Pain in unspecified joint Medications: New varenicline tartrate take 1 tablet by mouth daily on days 1-3; then 1 tablet twice daily (morning and evening) on days 4-28 0.5 mg PO DIRECTED 28 days 51 tabs 0RF albuterol sulfate 90 mcg/actuation (Ventolin HFA) 2 puffs inhalation Q6H 30 days PRN 6.7 grams 0RF shortness of breath or wheezing J45.30 - Mild persistent asthma, uncomplicated Patient Instructions: - Start Chantix as prescribed and monitor for any mood changes; notify me if adverse effects are noticed. - Refill and use your asthma inhaler as directed, especially if symptoms arise. - Continue methadone taper under supervision; contact for support if needed. - Attend all scheduled appointments, including with orthopedics, rheumatology, and hematology. - Undergo x-ray and nerve conduction study on scheduled date. - Continue taking omeprazole for GERD management. - Keep your dermatology appointment in December despite the wait. - Ensure to fast before your scheduled blood work. - Quit smoking, using Chantix to help if needed. Contact us if issues arise. - Follow up with any changes in symptoms or concerns not mentioned in this visit.
[2024-06-21 12:51] VITALS: BP 130/78; BMI 26.3
--- OUTSIDE RECORDS SUMMARY | 2024-06-21 13:47 | XMS_ITS | Clinical Summary ---
Author Organization [facility] Facility Address [address] [address] Care Team Providers Care Ruby Engineer Name Role Phone Aram Wallace MD Primary [...] Health Maintenance Due Date Last Done Comments Hepatitis B Vaccine (1 of 3 - 19+ 3-dose series) 04/16 Pneumococcal Vaccine: Peds ( 0 to 5 Years) and At-Risk Patients (6 to 49 Years) (1 of 2 - PCV) 04/17/2007 Influenza Vaccine (Season Ended) 2024 [place] [id number] [facility] Medicaid [facility] Medicaid Care Teams Ruby Engineer Relationship Specialty Start Date End Date Aram Wallace MD [address] [id number] PCP - General Family Medicine 04/02/22
== END 2024-06-21 13:07 | disposition home or self-care (01) ==
LOC: HO.HMCH 12:48
PROVIDERS: PCP Internal Medicine; Visit Provider Internal Medicine
DX: Z00.00 Encounter for general adult medical examination without abnormal findings (principal); I26.99 Other pulmonary embolism without acute cor pulmonale; F31.9 Bipolar disorder, unspecified; F19.188 Other psychoactive substance abuse with other psychoactive substance-induced disorder; J45.30 Mild persistent asthma, uncomplicated; L84 Corns and callosities; M79.642 Pain in left hand; M25.561 Pain in right knee; R20.2 Paresthesia of skin; M25.50 Pain in unspecified joint; F17.210 Nicotine dependence, cigarettes, uncomplicated

== ENCOUNTER → 2024-06-21 12:47 | Outpatient (BNVA) | payer OTHER, SELFPAY | PROVIDERS: PCP Internal Medicine; Visit Provider Internal Medicine | DX: Z00.00 Encounter for general adult medical examination without abnormal findings (principal); J45.30 Mild persistent asthma, uncomplicated; L84 Corns and callosities; M25.561 Pain in right knee; M79.642 Pain in left hand; R20.2 Paresthesia of skin; M25.50 Pain in unspecified joint; I26.99 Other pulmonary embolism without acute cor pulmonale; N28.89 Other specified disorders of kidney and ureter; M92.529 Juvenile osteochondrosis of tibia tubercle, unspecified leg; F33.1 Major depressive disorder, recurrent, moderate; F31.9 Bipolar disorder, unspecified; F14.188 Cocaine abuse with other cocaine-induced disorder; F11.188 Opioid abuse with other opioid-induced disorder; Z86.718 Personal history of other venous thrombosis and embolism | CPT/HCPCS: 96127; 99212; 99395 ==

== ENCOUNTER 2024-08-02 09:03 | Outpatient (REF) | payer OTHER, SELFPAY ==
--- NOTE | ~2024-08-02 | XR_ITS ---
EXAMINATION: XR HAND 3 OR MORE VIEWS LEFT HISTORY: M79.642 - Pain in left hand COMPARISON: There are no prior studies available for comparison. FINDINGS: Three views of the left hand are submitted. Osseous mineralization is normal. There is no fracture or dislocation. The joint spaces are preserved. There is soft tissue swelling involving the volar aspect of the index finger at the level of the head and neck of the proximal phalanx. XR/XR hand LT min 3V IMPRESSION: Soft tissue swelling of the index finger as described. No osseous abnormality is identified. Electronically signed by: Mack Bob MD 08/02/2024 09:56 AM EDT
[2024-08-02 09:28] LABS: MANUAL DIFF FLAG NO
--- OUTSIDE RECORDS SUMMARY | 2024-08-02 09:37 | XMS_ITS | Clinical Summary ---
Author Organization [address] [place] [address] Address [address] [place] [address] Phone Care Team Providers Care Ibm Mainframe Developer Name Role Phone Magdalena Quevedo MD Primary Care Provider [phone] Social History Tobacco Use Types Packs/Day Years Used Date Smoking Tobacco: Never Assessed Comments Unknown Sex and Gender Information Value Date Recorded Sex Assigned at Not on file Legal Sex Female 10:24 AM EST Gender Identity Not on file Sexual Orientation Not on file Plan of Treatment Health Maintenance Due Date Last Done Comments DTaP,Tdap,and Td Vaccines (1 - Tdap) 04/17/2007 Hepatitis B Vaccines (1 of 3 - 19+ 3-dose series) 04/17/2007 Cervical Cancer Screening: P ap Smear 2009 COVID-19 Vaccine (2023-2 5 season) 2023 Depression Screening 06/23/2024 HIV Screening 06/23/2024 Hepatitis C Screening 06/23/2024 Social Influencers of Health Screening 06/23/2024 Influenza Vaccine (Season Ended) 2024 HIB Vaccines Aged Out No longer eligi ble based on patient's age to complete this topic HPV Vaccines Aged Out No longer eligi ble based on patient's age to complete this topic Hepatitis A Vaccines Aged Out No long er eligible based on patient's age to complete this topic IPV Vaccines Aged Out No longer eligi ble based on patient's age to complete this topic MMR Vaccines Aged Out No longer eligi ble based on patient's age to complete this topic Meningococcal ACWY Vaccine Aged Out N o longer eligible based on patient's age to complete this topic Meningococcal B Vaccine Aged Out No l onger eligible based on patient's age to complete this topic Pneumococcal Vaccine: Pediat rics (0 to 5 Years) and At-Risk Patients (6 to 64 Years) Aged Out No longer eligible b ased on patient's age to complete this topic RSV Immunization Patients Un lani 20 months Aged Out No longer eligible b ased on patient's age to complete this topic Varicella Vaccines Aged Out No longer eligible based on patient's age to complete this topic Insurance Care Teams Ibm Mainframe Developer Relationship Specialty Start Date End Date Magdalena Quevedo MD [address] [place] [address] , [address] [facility] [place] PCP - General Internal Medicine 06/23/24
[2024-08-02 09:48] LABS: Basophils Absolute Auto 0.1 X10*3/uL (0.0-0.2); Basophils Percent Auto 0.8 % (0-2); Eosinophils Absolute Auto 0.1 X10*3/uL (0.0-0.4); Eosinophils Percent Auto 1.8 % (0-4); Hematocrit 42.4 % (37.0-47.0); Imm Gran Abs Auto 0.01 X10*3/uL (0.00-0.03); Imm Gran Pct Auto 0.2 % (0.0-0.4); Mean Corpuscular Hemoglobin 29.3 pg (27.0-33.0); Mean Corpuscular Volume 88.7 fL (80.0-98.0); Mean Platelet Volume 10.4 fL (9.4-12.3); Monocytes Absolute Auto 0.4 X10*3/uL (0.1-1.2); Monocytes Percent Auto 5.3 % (2-11); Neutrophils Absolute Auto 4.1 x10*3/uL (2.0-8.3); Neutrophils Percent Auto 61.9 % (45-73); Platelet Count 217 X10*3/uL (160-400); Red Blood Count 4.78 X10*6/uL (4.20-5.50); Red Cell Distribution Width 13.4 % (11.0-16.0); White Blood Count 6.6 X10*3/uL (4.8-10.8)
[2024-08-02 10:17] LABS: Alanine Aminotransferase 22 U/L (0-31); Albumin Level 4.6 g/dL (3.5-5.0); Alkaline Phosphatase 58 U/L (39-117); Anion Gap 11 (12-20); Aspartate Amino Transferase 19 U/L (5-31); Bilirubin Total 0.3 mg/dL (0.0-1.0); Blood Urea Nitrogen 16 mg/dL (9-16); Calcium 8.9 mg/dL (8.4-10.2); Carbon Dioxide 25 mmol/L (22-29); Chloride 108 mmol/L (96-108); Cholesterol 189 mg/dL (<200); Estimated Glomerular Filt Rate > 60; Glucose Fasting 98 mg/dL (60-99); HDL Cholesterol 56 mg/dL (>40); Iron 47 mcg/dL (30-160); LDL Cholesterol Calculated 121 mg/dL (<100); Percent Iron Saturation 17 % (15-50); Potassium 4.3 mmol/L (3.3-5.1); Sodium 140 mmol/L (135-145); Total Iron Binding Capacity 284 mcg/dL (228-428); Total Protein 7.5 g/dL (6.5-8.0); Triglycerides 60 mg/dL (<150); Unsaturated Iron Binding 237 ug/dL
[2024-08-02 10:36] LABS: Vitamin D 25-OH Total 43.2 ng/mL (>30)
[2024-08-02 10:40] LABS: Folate 6.7 ng/mL (> or = 4.0); Vitamin B12 481 pg/mL (200-900)
== END 2024-08-02 09:04 | disposition home or self-care (01) ==
LOC: HO.XRAY 09:03
PROVIDERS: PCP Internal Medicine; Visit Provider Internal Medicine
DX: Z00.00 Encounter for general adult medical examination without abnormal findings (principal); D64.9 Anemia, unspecified; E78.5 Hyperlipidemia, unspecified; E53.8 Deficiency of other specified B group vitamins; E55.9 Vitamin D deficiency, unspecified; M79.642 Pain in left hand; M25.561 Pain in right knee
CPT/HCPCS: 36415; 73130; 80053; 80061; 82306; 82607; 82746; 83540; 85025

== ENCOUNTER → 2024-08-02 09:27 | Outpatient (BNV) | payer OTHER, SELFPAY | PROVIDERS: PCP Internal Medicine; Visit Provider Radiology Diagnostic Radiology | DX: R22.42 Localized swelling, mass and lump, left lower limb (principal) | CPT/HCPCS: 73130 ==

== ENCOUNTER 2024-09-20 15:19 | Outpatient (AMB) | payer OTHER, SELFPAY ==
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
--- OUTSIDE RECORDS SUMMARY | 2024-09-20 16:10 | XMS_ITS | Clinical Summary ---
Author Organization [address] [place] [address] Address [address] [place] [address] Phone Care Team Providers Care Lithographers Printer Name Role Phone Magdalena Quevedo MD Primary Care Provider [phone] Social History Tobacco Use Types Packs/Day Years [...] Screening: P ap Smear 2009 COVID-19 Vaccine ( - 2023-2 5 season) 2023 Depression Screening 02/10/2024 HIV Screening 06/23/2024 Hepatitis C Screening 06/23/2024 Social Influencers of Health Screening 06/23/2024 Influenza Vaccine (#1) 2024 HIB Vaccines Aged Out No longer [...] and At-Risk Patients (6 to 49 Years) Aged Out No longer eligible b ased on patient's age to complete this topic RSV Immunization Patients Un lani 20 months Aged Out No longer eligible b ased on patient's age to complete this topic Varicella Vaccines Aged Out No longer eligible based on patient's age to complete this topic Insurance Care Teams Lithographers Printer Relationship Specialty Start Date End Date Magdalena Quevedo MD [address] [place] [address] , [address] [facility] Physician Associ D/B/A: [facility] [place] PCP - General Internal Medicine 06/23/24
--- OUTSIDE RECORDS SUMMARY | 2024-09-20 16:10 | XMS_ITS | Clinical Summary ---
Author Organization [facility] Facility Address [address] [address] Care Team Providers Care Flatwork Assembler Name Role Phone Aram Wallace MD Primary Care Provider [phone] Allergies Active Allergy Reactions Criticality Noted Date [...] of 2 - PCV) 04/17/2007 Influenza Vaccine (#1) 2024 [place] [id number] [facility] Medicaid [facility] Medicaid Care Teams Flatwork Assembler Relationship Specialty Start Date End Date Aram Wallace MD [address] [id number] PCP - General Family Medicine 04/02/22
== END 2024-09-20 15:55 | disposition home or self-care (01) ==
LOC: HO.HOP 15:19
PROVIDERS: PCP Internal Medicine; Visit Provider Clinical Nurse Specialist Psychiatric/Mental Health
DX: F33.1 Major depressive disorder, recurrent, moderate (principal); F40.10 Social phobia, unspecified; F90.2 Attention-deficit hyperactivity disorder, combined type
CPT/HCPCS: 99215

== ENCOUNTER → 2024-09-20 15:19 | Outpatient (BNVA) | payer OTHER, SELFPAY | PROVIDERS: PCP Internal Medicine; Visit Provider Clinical Nurse Specialist Psychiatric/Mental Health | DX: F33.1 Major depressive disorder, recurrent, moderate (principal); F40.10 Social phobia, unspecified; F90.2 Attention-deficit hyperactivity disorder, combined type | CPT/HCPCS: 99212 ==

== ENCOUNTER 2025-01-24 14:51 | Outpatient (AMB) | payer OTHER, SELFPAY ==
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
--- OUTSIDE RECORDS SUMMARY | 2025-01-24 19:12 | XMS_ITS | Clinical Summary ---
Author Organization [address] [place] [address] Address [address] [place] [address] Phone Care Team Providers Care Lithographic Stripper Name Role Phone Magdalena Quevedo MD Primary Care Provider [phone] Social History Tobacco Use Types Packs/Day Years [...] Cervical Cancer Screening: P ap Smear 2009 HPV Vaccines (1 - 3-dose SCD M series) 04/17/2015 Depression Screening 02/10/2024 HIV Screening 06/23/2024 Hepatitis C Screening 06/23/2024 Social Influencers of Health Screening 06/23/2024 COVID-19 Vaccine ( - 2024-2 6 season) 2024 Influenza Vaccine (#1) 2024 RSV Immunization Adult Patie nts (1 - 1-dose 75+ series) 04/17/2063 HIB Vaccines Aged Out No longer eligi [...] patient's age to complete this topic Insurance PLAN Care Teams Lithographic Stripper Relationship Specialty Start Date End Date Magdalena Quevedo MD [address] [place] [address] , [address] [facility] Physician Associ D/B/A: [facility] [place] PCP - General Internal Medicine 06/23/24
== END 2025-01-24 15:28 | disposition home or self-care (01) ==
LOC: HO.HOP 14:51
PROVIDERS: PCP Internal Medicine; Visit Provider Clinical Nurse Specialist Psychiatric/Mental Health
DX: F33.1 Major depressive disorder, recurrent, moderate (principal); F40.10 Social phobia, unspecified; F90.2 Attention-deficit hyperactivity disorder, combined type
CPT/HCPCS: 99214

== ENCOUNTER → 2025-01-24 14:51 | Outpatient (BNVA) | payer OTHER, SELFPAY | PROVIDERS: PCP Internal Medicine; Visit Provider Clinical Nurse Specialist Psychiatric/Mental Health | DX: F33.1 Major depressive disorder, recurrent, moderate (principal); F40.10 Social phobia, unspecified; F90.2 Attention-deficit hyperactivity disorder, combined type | CPT/HCPCS: 99212 ==